=== PATIENT | male | born 1945 | race Two or more races ===

== ENCOUNTER 2017-05-31 19:18 | Inpatient (IN) | payer MEDICARE ==
[~2017-05-31] VITALS: Ht 172.7 cm; Wt 67.9 kg
--- NOTE | ~2017-05-31 | CON ---
PATIENT'S NAME: ELINOR HERNÁNDEZ I [facility] AGE: 71 Y [address] ROOM: [id number] [place], [place] [address] LOCATION: [facility] [place] ADMIT DATE: 05/31/2017 Consultation DISCHARGE DATE: FAMILY PHYSICIAN: PHYSICIAN, NO ATTENDING PHYSICIAN: DEANNA GUSMAN REFERRING PHYSICIAN: DAYO ABURTO MD HISTORY OF PRESENT ILLNESS: Dr. Gusman has requested that I provide an inpatient consultation on this 71- year-old male who was admitted to the emergency room last evening because of the status of his right toe. He is an insulin-dependent diabetic. He is exclusively Czech-speaking and a senior resident care director is not available. History is obtained via the nursing staff and review of his chart. The patient has longstanding insulin-dependent diabetes mellitus. He does not check his blood glucose level on a regular basis (less than or equal to once a day). His hemoglobin A1c was 12 upon admission. The patient noted skin breakdown in his right great toe after working in boots. He has severely compromised sensation to light touch at the foot. He states that the toe is pain free. He has been applying an unspecified vowj-omx-mibyvul topical agents to the toe. He noted that his nail plate was falling off, and, thus, he removed it. His son was reportedly disturbed by the appearance of the toe and encouraged him to come into the hospital. PHYSICAL EXAMINATION: The patient is a slender, alert, pleasant, cooperative male. He states that the toe was pain-free. The nail plate is absent. There is no right inguinal adenopathy. There is no peripheral edema at the right lower extremity. There is no calf swelling or tenderness. There is no erythema at the great toe or ankle. There is partial-thickness skin ulceration involving the nailfold and a 3 to 5 mm rim surrounding the former position of the nail plate. There is no fluctuance. There is no purulence. There is no drainage. There is no erythema. There is no exposed bone or tendon. IMPRESSION: 1. Skin breakdown at the right great toe with avulsion of nail plate. 2. Insulin-dependent diabetes mellitus (poorly-controlled) with significant diabetic neuropathy. PLAN: 1. In the absence of infection, there is no need for urgent surgical intervention. It is conceivable that amputation of the toe may be necessary due to anticipated compromised wound healing capacity. 2. I have consulted the Wound Care nurse team. We will have the patient followed by Dr. Kimball (in the event that debridement and/or amputation is necessary). He may bear weight as tolerated. PATIENT'S NAME: ELINOR HERNÁNDEZ I [facility] AGE: 71 Y [address] ROOM: [place] [address] LOCATION: [facility] [place] ADMIT DATE: 05/31/2017 Consultation DISCHARGE DATE: FAMILY PHYSICIAN: PHYSICIAN, JAMES ATTENDING PHYSICIAN: DEANNA GUSMAN MD ENRIQUE MONTES/elena /[id number] CC: MD Wild Pandey MD d: 06/01/17 0741 t: 06/08/17 0752, CONSULTATION REPORT
--- NOTE | ~2017-05-31 | CON ---
PATIENT'S NAME: ELINOR HERNÁNDEZ I [facility] AGE: 71 Y [address] ROOM: [place] [address] [place]ATION: [facility] [place] ADMIT DATE: 05/31/2017 Consultation DISCHARGE DATE: FAMILY PHYSICIAN: PHYSICIAN, NO ATTENDING PHYSICIAN: DEANNA GUSMAN DATE OF CONSULTATION: 06/01/2017 REFERRING PHYSICIAN: Ramiro Hirsch MD REASON FOR CONSULT: Right great toe wound. HISTORY OF PRESENT ILLNESS: This is a 71-year-old Afghan-speaking male patient who was admitted to [facility] with a right great toe wound secondary to trauma. Last week, he was walking in a field and accidentally kicked a pipe injuring his great toe. He noted the nail pulled off. His has been applying a penicillin powder from [place] to the toe. They note the toe is much improved. No drainage currently noted. At home, he notes no purulent exudate. He denies fevers, chills, or sweats. He is a type 2 diabetic and has an insensate foot. No pain. He denies chest pain or shortness of breath. He has mycotic toenails. He is very pleasant. PAST MEDICAL HISTORY: 1. Type 2 diabetes mellitus. 2. Hypertension. PAST SURGICAL HISTORY: None listed. FAMILY HISTORY: His daughter is a diabetic. SOCIAL HISTORY: The patient lives in [place]. He is unemployed. He is a former tobacco user. He is a social alcohol drinker. ALLERGIES: NO KNOWN DRUG ALLERGIES. CURRENT MEDICATIONS: Please refer to the medication administration record. PATIENT'S NAME: ELINOR HERNÁNDEZ I [facility] AGE: 71 Y [address] ROOM: [place] [address] LOCATION: [facility] [place] ADMIT DATE: 05/31/2017 Consultation DISCHARGE DATE: FAMILY PHYSICIAN: PHYSICIAN, NO ATTENDING PHYSICIAN: DEANNA GUSMAN REVIEW OF SYSTEMS: Pertinent positives addressed in the HPI and all the rest are negative. PHYSICAL EXAMINATION: VITAL SIGNS: Temperature 97.7, pulse 66, respirations 16, and blood pressure 175/79. Pulse oximetry is 98% on room air. Height is 5 feet 8 inches and weight 67.9 kg. GENERAL: The patient is alert and oriented x3. Afghan-speaking only. I used a fire protection inspector during my interaction. HEENT: Head; normocephalic and atraumatic. CARDIOVASCULAR: Deferred. ABDOMEN: Flat. EXTREMITIES: Palpable pedal pulses. No edema. Mycotic toenails. Heel is intact. SKIN: Right great toe has thick, dry necrotic scabbing. Easily debrided revealing a white wound bed where the toenail would normally sit. Surrounding wound bed is moist pink. Small bloody exudate noted. Periwound is slightly scabbed at the base. Distal tip skin is slightly undermined. No erythema to toe. No purulent exudate. No induration. Slight fluctuance at the distal aspect where the undermining is. No odor. Area measures approximately 2.0 cm width x 2.5 cm length x 0.3 cm depth. LABORATORY AND DIAGNOSTICS: Hemoglobin A1c is 12.9%. White blood cell count is 7.4, hemoglobin 13.5, hematocrit 39.0, and platelets 191,000. Sodium 138, potassium 3.7, chloride 104, bicarbonate 24, BUN 16, creatinine 0.7, and glucose 212. CRP 0.79. ESR is 35. Procalcitonin is less than 0.05. Blood cultures showed no growth to date. Right great toe x-ray shows soft-tissue injury involving the great toe with no evidence of fracture, dislocation, bony lytic lesions, or radiopaque foreign body. PROCEDURE NOTE: Today's procedure is selective debridement of necrosis to the patient's right great toe wound. I used a fire protection inspector and the patient gave verbal consent. The area was prepped and draped in the usual fashion and performed in a clean field. I used a sterile #11 blade and sterile hemostat to gently excise necrosis from the wound. Small bloody exudate was noted and hemostasis was achieved by using manual pressure with a gauze pad. The patient reported no feeling. The area debrided was 6 sq cm. ASSESSMENT AND PLAN: Again this is a pleasant 71-year-old Afghan-speaking male patient who was admitted to [facility] with a right great toe wound. 1. Right great toe traumatic wound with complete toe nail avulsion. Easily PATIENT'S NAME: ELINOR HERNÁNDEZ I [facility] AGE: 71 Y [address] ROOM: [place] [address] LOCATION: [facility] ADMIT DATE: 05/31/2017 Consultation DISCHARGE DATE: FAMILY PHYSICIAN: PHYSICIAN, JAMES ATTENDING PHYSICIAN: DEANNA GUSMAN debrided necrosis. Wound bed appears clean. We will cover the site with Xeroform daily. The patient appears to have adequate blood flow. This site will be complicated by his uncontrolled diabetes. At this point, it does appear the site will heal. Dr. Kimball will also see the patient later today. The patient had questions about his toenail growing back. I deferred to Orthopedics. I educated him on the importance of protein intake and elevation. I would be happy to follow up in outpatient WOC if needed. I would like to thank Dr. Hirsch for this consult. DIMA GONG APRN FOR MD EZIO HI/elena /[id number] d: 06/01/17 1409 t: 06/18/17 0909, CONSULTATION REPORT
--- NOTE | ~2017-05-31 | HP ---
PATIENT'S NAME: ELINOR HERNÁNDEZ I [facility] AGE: 71 Y [address] ROOM: [address] [place], [place] [address] LOCATION: [facility] [place] ADMIT DATE: 05/31/2017 History & Physical DISCHARGE DATE: FAMILY PHYSICIAN: JAMES DANIELSON ATTENDING PHYSICIAN: DEANNA GUSMAN DATE OF SERVICE: CHIEF COMPLAINT: Right big toe wound after trauma. HISTORY OF PRESENT ILLNESS: This is a 71-year-old, Macedonian speaking, male who says that for many years the patient has been having this fungal infection of the toenail on the first big toe. 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 The blister ruptured on its own and serosanguineous collection of fluid came out and while the patient was cleaning, he intentionally removed the toenail of the right big first toe. There was no pain at all due to his longstanding diabetes with diabetic peripheral neuropathy. He denies any bleeding or any or pus and the only secretion he was able to see was the serosanguineous fluid coming out from the blister. Subsequently, his has been taking care of him for that wound and has been washing with soap and water as well with powder of penicillin that she brought back from [place] where she will mix with water and the powder of the penicillin bottle and then will wash the first big toe on a daily basis. The patient states that the wound on the right first big toe is actually looking much better than when it was first injured last Sunday and when he took off the toenail. He denies any fever or chills. He also denies any chest pain or shortness of breath or any other symptoms. Since he removed the toenail last Sunday, he has been wearing flip-flops on that foot. The patient came here tonight for evaluation given that the patient's son convinced him to come here to get the proper treatment and to get antibiotics in case the toe is infected. 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 He also denies any prior cardiac problems or pulmonary problems. His only medical problems that he is aware are hypertension and diabetes. He does not take any medication for hypertension, but he does take metformin 850 mg p.o. daily for diabetes. His METS score is more than 4 at the baseline. REVIEW OF SYSTEMS: PATIENT'S NAME: ELINOR HERNÁNDEZ I [facility] AGE: 71 Y [address] ROOM: [place] [address] LOCATION: [facility] [place] ADMIT DATE: 05/31/2017 History & Physical DISCHARGE DATE: FAMILY PHYSICIAN: PHYSICIAN, NO ATTENDING PHYSICIAN: DEANNA GUSMAN As mentioned in the history of present illness. All other systems were reviewed and were negative except those mentioned in the history of present illness. PAST MEDICAL HISTORY: 1. Diabetes type 2. 2. Diabetic peripheral neuropathy in bilateral lower extremities. 3. Hypertension. ALLERGIES: NONE. HOME MEDICATIONS: Metformin 850 mg p.o. daily. SOCIAL HISTORY: The patient was a former cigarette smoker. He quit in 1985. He used to smoke about 2 packs per day for roughly 15 years. He denies any alcohol or any illegal drug use. PAST SURGICAL HISTORY: None. FAMILY HISTORY: Both parents from old age, but he could not remember much about their medical problems. PHYSICAL EXAMINATION: VITAL SIGNS: At the time of my evaluation, temperature was 97.7, heart rate was 55, respirations were 16, blood pressure was 238/102, and saturation 99% on room air. GENERAL APPEARANCE: Alert and oriented x3. Currently, in no acute distress. HEENT: Pupils equally round and reactive to light. Extraocular muscles intact. Anicteric sclerae. Nasal turbinates are normal bilaterally. Moist oral mucosa. NECK: No JVD. CARDIOVASCULAR: Regular rate and rhythm. No murmur. No rubs. No gallops. Normal S1 and normal S2. RESPIRATORY: Clear to auscultation. No rales. No rhonchi. No wheezing. No crackles. ABDOMEN: Soft, nontender, and nondistended. Normal bowel sounds. No hepatosplenomegaly. Bowel sounds are present. EXTREMITIES: No edema in upper or lower extremities. On the right first big toe, there is absence of toenail. There is some necrotic tissue surrounding the first big toe. No obvious purulent drainage and currently, the first big PATIENT'S NAME: ELINOR HERNÁNDEZ I [facility] AGE: 71 Y [address] ROOM: [address] [place], [place] [address] LOCATION: [facility] [place] ADMIT DATE: 05/31/2017 History & Physical DISCHARGE DATE: FAMILY PHYSICIAN: PHYSICIAN, NO ATTENDING PHYSICIAN: DEANNA GUSMAN toe is dry. No active bleeding. No open ulcer. Nontender. No erythema. Dorsalis pedis pulse and posterior tibialis pulse present +2 bilaterally palpable in both feet. The leg is not cold to touch. The color of the skin is pink. NEUROLOGIC: Grossly nonfocal except that he does have decreased sensation in bilateral feet due to peripheral neuropathy. SKIN: Refer to the extremity section for the finding on the first big toe. Otherwise, unremarkable without cyanosis or rash or ulcer in any other parts. LABORATORY DATA: Lactic acid 2.8. White blood cells 7.4, hemoglobin 13.5, hematocrit 39, and platelets 191. Glucose 363, BUN 12, creatinine 0.8, sodium 134, potassium 4.2, chloride 103, CO2 of 23, calcium 8.7, total protein 7.7, albumin 3.4, AST 17, ALT 19, alkaline phosphatase 81, total bilirubin 0.3, anion gap 12.2, and globulin 4.3. ESR is 46. INR 0.94 and PTT 27. CRP 0.94. Procalcitonin less than 0.05. GFR 89. IMAGING STUDY: The right big toe x-ray on admission on May 31, 2017 shows soft tissue injury involving the great toe with no evidence of fracture, dislocation, bony lytic lesion, or radiopaque foreign body. EKG on admission showed finding consistent with left ventricular hypertrophy, sinus rhythm. Heart rate within normal limits. No prior EKG for comparison. EMERGENCY ROOM COURSE: In the emergency room, ER physician already contacted on-call Orthopedic surgeon, Dr. Hirsch and the recommendation will be n.p.o. after midnight and give 2 g of IV Ancef and then dry gauze to the first right big toe in anticipation for possible debridement tomorrow in the morning or in the early afternoon depending on the Orthopedic Surgery service evaluation and scheduling. ASSESSMENT/PLAN: 1. Regarding his right first toe injury and wound. N.p.o. after midnight. Orthopedic Surgery consult in the morning. Dry gauze to the right first big toe. No antibiotics given the patient already got 2 g IV Ancef in the emergency room. He has no pain, but he if he does have pain, IV morphine p.r.n. While he is n.p.o., he should be getting IV fluids for maintenance. The patient will likely require debridement of the necrotic tissue of the right first big toe. Blood cultures of two sets were already obtained in the emergency room. Further plan will depend on clinical course. 2. Regarding his hypertension. The patient does not take any medication at home. EKG showed evidence of left ventricular hypertrophy consistent PATIENT'S NAME: ELINOR HERNÁNDEZ I [facility] AGE: 71 Y [address] ROOM: [address] [address] LOCATION: [facility] [place] ADMIT DATE: 05/31/2017 History & Physical DISCHARGE DATE: FAMILY PHYSICIAN: PHYSICIAN, NO ATTENDING PHYSICIAN: DEANNA GUSMAN with longstanding hypertension. His systolic blood pressure was 230 on arrival. Given that this is chronic and untreated, this is hypertensive urgency given the patient is asymptomatic and without any organ damage. Therefore, the plan will be lower no more than 25% to 30% in the first 24 hours. Therefore, ideally his systolic blood pressure should be around 150 to 160 in the next 24 hours. Therefore, I will be treating him with hypertensive urgency with p.o. captopril 25 mg every 4 hours as well as p.o. clonidine 0.2 mg b.i.d. In addition, add IV hydralazine 20 mg p.o. every hour p.r.n. for systolic blood pressure more than 180. Eventually, we will switch the patient to different regimen given that captopril we usually do not use for prison. Clonidine could cause rebound hypertension once it is discontinued. Further plan will depend on clinical course. 3. Regarding his diabetes type 2. Check A1c. I will treat him with metformin 1 g p.o. b.i.d. In addition, starting on the subcu Levemir 10 units twice a day, one dose right now. In addition, check the fingerstick glucose right now and give him one dose of subcu NovoLog according to the aggressive dose table and then put him on the a.c. and at bedtime subcu NovoLog moderate dose and titrate as needed. 4. Regarding his deep vein thrombosis prophylaxis. None for now given that the patient likely will be taken to the OR tomorrow for debridement. 5. He is a full code. Time spent in care on the day of admission 43 minutes, where 10 minutes was spent on chart review, and the remainder of time was spent on interview and also on physical examination and also on counseling. The counseling includes addressing all the questions and concerns that the patient and the patient's had at the bedside to their satisfaction. The counseling also includes going over the plan of care in detail with the nurse. Further plan will depend on clinical course. MD FRANK BLOCK/elena /[id number] D: [id number] T: [id number] HISTORY & PHYSICAL
--- NOTE | ~2017-05-31 | ER ---
PATIENT'S NAME: EDGAR [facility] AGE: 71 Y [address] ROOM: [place] [id number] LOCATION: [facility] [place] ADMIT DATE: 05/31/2017 ER/Outpatient Report DISCHARGE DATE: FAMILY PHYSICIAN: PHYSICIAN, NO ATTENDING PHYSICIAN: DEANNA GUSMAN Time of Arrival: 1918 hours. Time of Evaluation: 1945 hours. CHIEF COMPLAINT: Toe injury. HISTORY OF PRESENT ILLNESS: This is a 71-year-old, male who was evaluated through the Pharmacy Technician Instructor Service, Mey who states that he injured his right great toe 5 days ago. The patient states that he was walking, kicked the pipe, and injured his toe. He states his nail was pulled off in the injury. The patient states that he has been putting some powdered medication from [place] on the toe. He states he does not believe he has been running any fevers. He has noticed increased swelling to the foot, but states that he has no pain. He states he does have some numbing sensations to his feet. He denies any lightheadedness, dizziness, cough, cold, headaches, chest pain, or shortness of breath. He denies any other problems at this time, and he states his last tetanus shot was 2 years ago. ALLERGIES: NO KNOWN ALLERGIES. MEDICATIONS: Please see medication list in the nurse's notes. PAST MEDICAL HISTORY: Cwb-auyujkm-blcxcouor diabetic. PAST SURGICAL HISTORY: None. SOCIAL HISTORY: Denies smoking, drug, or alcohol use. REVIEW OF SYSTEMS: All systems reviewed and negative with the exception of those discussed in the HPI. PHYSICAL EXAMINATION: PATIENT'S NAME: HERNÁNDEZ [facility] AGE: 71 Y [address] ROOM: [address] [address] LOCATION: [facility] [place] ADMIT DATE: 05/31/2017 ER/Outpatient Report DISCHARGE DATE: FAMILY PHYSICIAN: PHYSICIAN, NO ATTENDING PHYSICIAN: DEANNA GUSMAN VITAL SIGNS: Height 5 feet 6 inches stated, weight 68.0 kg taken, blood pressure is 237/103, pulse 66, respirations 16, temperature 98.1 degrees with the temporal scanner saturations 97% on room air. Mustapha Coma Score is 15. GENERAL: Alert, calm, well-developed 71-year-old, in no acute distress. HEENT: Head: Normocephalic. He does display moist mucous membranes. Eyes: Pupils are equal and reactive to light. LUNGS: Clear to auscultation bilaterally. HEART: Regular rate and rhythm. EXTREMITIES: He has full range of motion of all limbs. He does have decreased sensation to bilateral feet. SKIN: He has a swollen erythematic right great toe. The nail bed is macerated and this does continue to the whole distal aspect of his toe. He has no tenderness with palpation over the distal aspect of the toe, no purulence. He does have some fluctuance to the skin. NEURO: Cranial nerves 2 through 12 grossly intact. Gait was steady with slight limp. LABORATORY DATA: CBC: White count is 7.4, hemoglobin is 13.5, platelets 191, ANC is 4.6, INR is 0.94, sedimentation rate is 46. CMS: Sodium is 134, glucose was 363, BUN 12, creatinine is 0.8, anion gap is 12.2. Liver enzymes were unremarkable. CRP is 0.94, procalcitonin is less than 0.05. Lactate is 2.8. EKG shows sinus bradycardia. He does have some inverted T-waves noted. X-rayof the right foot show no bony involvement to the right hallux. IMPRESSION: 1. Cellulitis to right great toe. 2. Hypertension. 3. Diabetes type 2. ASSESSMENT AND PLAN: The patient did not require any pain medication while he was here. We did start an IV and did obtain 2 blood cultures. We did give him a total of 2 g of Ancef IV here in the emergency room. The patient does not have a primary care physician here in [place], therefore, I called Dr. Gusman and also consulted Dr. Hirsch who is on-call for orthopedic trauma call. We will be admitting the patient for further care. The patient and patient's family understand and agree with care. JHONY SMILEY PA-C FOR MD BALTA GOMEZ/elena PATIENT'S NAME: ELINOR HERNÁNDEZ I [facility] AGE: 71 Y [address] ROOM: [address] [address] LOCATION: [facility] [place] ADMIT DATE: 05/31/2017 ER/Outpatient Report DISCHARGE DATE: FAMILY PHYSICIAN: JAMES DANIELSON ATTENDING PHYSICIAN: DEANNA GUSMAN /[id number] d: 05/31/17 2354 t: 06/05/17 1805, OUTPATIENT REPORT
--- NOTE | ~2017-05-31 | DS ---
PATIENT'S NAME: ELINOR HERNÁNDEZ I [facility] AGE: 71 Y [address] ROOM: [id number] [place], [place] [address] [place] [facility] [place] DATE: 05/31/2017 Discharge Summary DISCHARGE DATE: 06/04/2017 FAMILY PHYSICIAN: PHYSICIAN, JAMES ATTENDING PHYSICIAN: Mannie Barrientos PRINCIPAL DIAGNOSES: 1. Right great toe wound. 2. Diabetes mellitus type 2, uncontrolled. 3. Hypertension, essential, uncontrolled. 4. Diabetic neuropathy. HOSPITAL COURSE: Please reference any of the admitting data to the history and physical as dictated by Dr. Mannie Barrientos. This is a 71-year-old male who presented to the emergency room with a right big toe wound after a trauma event. He was admitted to the hospital for further evaluation and management and Orthopedic consultation. An x-ray of the foot did not show any evidence of fracture, dislocation, or lesions. There was definite soft tissue injury. Lab values did not show any evidence of sepsis. Orthopedic consultation, Dr. Hirsch, did not feel there was any need for urgent surgical intervention. Consultation with the Wound Care team and nurse practitioner ensued and the patient's nail avulsion was debrided at the bedside to show good clear clean tissue. It was dressed appropriately. Of note, the patient did get 1 dose of antibiotics in the emergency room, but no further while inpatient as we monitored over the patient's stay which did show some improvement and no further signs of infection. He will require followup appropriately as an outpatient. The patient's diabetes however was found to be significantly uncontrolled with a hemoglobin A1c of 12.9. We maximized his metformin that he was taking at home and added insulin regimen to adequately bring his blood sugars down. A diabetes education consultation ensued. The patient was adamant about not taking any insulin upon discharge; so, we tried to accommodate by titrating it accordingly. We were able to start him on maximum dose of metformin as well as compare I did see an improvement in his blood sugars overall into the 100s. He did not have any renal side effects during his short stay because of it. He is given extensive diet and exercise education as well importance of followup of his diabetes. We did not obtain a lipid panel as an inpatient, but this will be sufficiently tested as an outpatient. Also, found, the patient was very hypertensive with an initial blood pressure of 238/102, we brought this back down into a more normal range with captopril and clonidine. We then transition him to an MELISSA inhibitor and maximized that dosage as well as amlodipine and maximized it. We were required to add chlorthalidone up to 50 mg. He still had pretty significant hypertension with PATIENT'S NAME: ELINOR HERNÁNDEZ I [facility] AGE: 71 Y [address] ROOM: [place] [address] LOCATION: [facility] [place] ADMIT DATE: 05/31/2017 Discharge Summary DISCHARGE DATE: 06/04/2017 FAMILY PHYSICIAN: PHYSICIAN, NO ATTENDING PHYSICIAN: Mannie Barrientos systolic blood pressures in the 170s and 180s, he was asymptomatic, it was felt that due to the recent addition of these medications, we should see improvement over the next few days with appropriate outpatient followup and blood pressure monitoring, he would be safe to return to home. CONDITION AT DISCHARGE: Good. CONSULTING PROVIDERS: 1. Dr. Ramiro Hirsch and Wild Kimball, Orthopedics. 2. Barbra Brunson APRN, Wound Care. PROCEDURES: Surgical debridement at the bedside by Barbra Brunson APRN. PERTINENT LABORATORY FINDINGS: The patient did not have a white count when he presented. White blood cells were 7.4, hemoglobin of 13.5, hematocrit of 39.0, and platelet count 191. Chemistry panel on 06/04/2017 last showed glucose of 122, BUN of 11, creatinine of 0.7, sodium 140, potassium 4.0, chloride 107, CO2 24, calcium 8.8. Liver functions within normal limits. Initial CRP was 0.94. Sed rate was 46. Procalcitonin was negative. Hemoglobin A1c was 12.9. Urinalysis was negative for leukocytes, negative for nitrites, mild protein 15, and 1000 glucose, but negative for ketones. RADIOLOGIC IMAGING: Three-view of the right foot as described above with an impression of soft tissue injury with no other definite findings. DISCHARGE MEDICATIONS: 1. Amlodipine 10 mg p.o. everyday. 2. Chlorthalidone 50 mg p.o. everyday. 3. Glipizide 10 mg p.o. twice daily before meals. 4. Glucophage 1000 mg p.o. twice daily. 5. Lisinopril 40 mg p.o. everyday. DISCHARGE INSTRUCTIONS: The patient will be discharged to home with his spouse. Diet is to be diabetic and low-sodium with activity as tolerated. He will require follow up with his primary care doctor, Dr. Marcus Olmos, within the next 5 to 7 days. At that same timeframe, he is to obtain a fasting chemistry panel and lipid panel for further evaluation. He is instructed that the patient takes his blood sugars twice daily and blood pressure each a.m. upon rising at the same time and record results and take to the followup as well. He should also [facility] June 13 at 2 p.m. PATIENT'S NAME: ELINOR HERNÁNDEZ I [facility] AGE: 71 Y [address] ROOM: [place] [address] LOC[place]: [facility] [place] ADMIT DATE: 05/31/2017 Discharge Summary DISCHARGE DATE: 06/04/2017 FAMILY PHYSICIAN: PHYSICIAN, JAMES ATTENDING PHYSICIAN: Mannie Barrientos As far as wound care goes, he should continue with the home dressings changes with Xeroform to the wound bed draped over and wrapped with gauze changing Sunday, Sunday, and Sunday with appropriate follow up on at 10:30. At the same timeframe, Dr. Kimball will hopefully evaluate the wound. As previous stated, there was no indication for antibiotic treatment as the tissue appeared to be granulating well and no signs of infection at the time of discharge. IMPORTANT NOTE: Hebrew interpretation was utilized throughout the course of the hospitalization including at time of discharge. Above line of management was discussed with the patient and spouse who stated complete understanding and all questions were answered with stated satisfaction. Indirect coordination of the care of the patient and discharge planning was greater than 30 minutes. ANGEL HWANG APRN, APRN FOR MD [facility]/elena /[id number] CC: MD Barbra Mccoy APRN d: 06/05/17 0031 t: 06/11/17 1129, DISCHARGE SUMMARY
[2017-05-31 20:25] LABS: BASOPHIL # 0.1 K/uL (0.0-0.2); BASOPHIL % 0.7 %; EOSINOPHIL # 0.3 K/uL (0.0-0.5); EOSINOPHIL % 3.4 %; HEMOGLOBIN 13.5 g/dL (11.0-16.0); IMMATURE GRANULOCYTE % 0.1 %; MCH 28.3 pg (27.0-34.0); MCHC 34.6 gm/dL (32.0-36.5); MCV 81.8 fl (83.0-98.0); MONOCYTE # 0.5 K/uL (0.0-1.0); MONOCYTE % 6.4 %; MPV 11.5 fl (9.4-12.4); NEUTROPHIL # (ANC) 4.6 K/uL (1.4-9.0); NEUTROPHIL % 62.4 %; NRBC % 0 /100WBC (0-0.00); PLATELET COUNT 191 K/uL (150-450); RBC 4.77 M/uL (3.50-5.50); RDW-CV 12.5 % (11.9-14.6); WBC 7.4 K/uL (4.0-11.0)
[2017-05-31 20:34] LABS: INR - (THERAPEUTIC) 0.94 (0.92-1.07); PROTIME 9.9 SECONDS (9.8-11.4); PTT 27 SECONDS (25-32)
[2017-05-31 20:44] LABS: ALBUMIN 3.4 gm/dL (3.5-5.0); ANION GAP 12.2 (10.0-19.0); CALCIUM 8.7 mg/dL (8.5-10.5); CREATININE 0.8 mg/dL (0.6-1.3); POTASSIUM 4.2 mMol/L (3.7-5.1); TOTAL BILIRUBIN 0.3 mg/dL (0.0-1.5); TOTAL PROTEIN 7.7 g/dL (6.0-8.4)
[2017-06-01] MEDS ORDERED: GLUCOPHAGE1000 MG PO (00:25)
[2017-06-01 01:19] LABS: CPK 65 IU/L (35-332)
--- NOTE | 2017-06-01 02:13 | NUR ---
PT ADMIT FROM ER, INFECTED R GREAT TOE FOR DR GUSMAN. BP ON ARRIVAL TO FLOOR WAS 238/102, MD NOTIFIED. TREATED WITH HYDRALAZINE, CLONIDINE, CAPTOPRIL. CHECK Q 1HR X3, IF SBP NOT < 160 AT THAT TIME NOTIFY MD. PT IS [place] SPEAKING ONLY. ONLY REPORTS HX OF DIABETES. REPORTS GOING TO [place] TO GET MEDICATIONS AND ONLY TAKES METFORMIN. WAS WALKING IN [place], HAD BLISTER ON TOE THAT POPPED. HAS CHRONIC FUNGAL INFECTION OF TOE NAILS, AND TOE NAIL STARTED TO FALL OFF, SO HE PULLED IT OFF ALL THE WAY. REPORTS HIS SON BROUGHT HIM IN TO HAVE IT FIXED BECAUSE IT WAS UGLY. ORTHO CONSULTED, NPO AFTER MIDNIGHT FOR DEBRIDEMENT IN AM.
--- NOTE | 2017-06-01 04:27 | NUR ---
Significant Event: PT AO. [place]URKM[place] SPEAKING ONLY. NPO FOR POSSIBLE DEBRIDEMENT OF R GREAT TOE. CURRENTLY WRAPPED IN DRY GUAZE. AMBULATES WITH SBA. BP WERE HTN ON ARRIVAL, HAVE SINCE COME DOWN. CONTINUE TAKING BP/HR Q1HR UNTIL 0800. IF REMAINS SBP> 160 AT THAT TIME, ORDERS TO CALL MD. ACCUCHECKS Q4HR, MILD SLIDING SCALE WHILE NPO. WILL BE ACHS, MODERATE SLIDING SCALE WHEN EATING AGAIN. STILL NEED UA. AT BEDSIDE. Follow up: NO PERMITS FOR DEBRIDEMENT YET, MONITOR HTN, Q4HR ACCUCHECKS
[2017-06-01 05:41] LABS: ANION GAP 13.7 (10.0-19.0); BLOOD UREA NITROGEN 16 mg/dL (6-24); CALCIUM 8.7 mg/dL (8.5-10.5); CHLORIDE 104 mMol/L (96-110); CO2 24 mMol/L (22-32); CREATININE 0.7 mg/dL (0.6-1.3); POTASSIUM 3.7 mMol/L (3.7-5.1); SODIUM 138 mMol/L (135-145)
[2017-06-01 09:28] LABS: BILIRUBIN URINE NEGATIVE (NEGATIVE); BLOOD URINE NEGATIVE /UL (NEGATIVE); COLOR URINE YELLOW (YELLOW); GLUCOSE URINE 1000 mg/dL (NEGATIVE); KETONE URINE NEGATIVE (NEGATIVE); LEUKOCYTES URINE NEGATIVE /UL (NEGATIVE); NITRITE URINE NEGATIVE (NEGATIVE); PROTEIN URINE 15 mg/dL (NEGATIVE); TURBIDITY URINE CLEAR (CLEAR); UROBILINOGEN URINE NORMAL (NORMAL)
[2017-06-01 09:41] LABS: BACTERIA URINE NEGATIVE (NEGATIVE); EPITHELIAL URINE NEGATIVE #/HPF (NEGATIVE); RBC URINE 0-2 #/HPF (NEGATIVE); WBC URINE 0-2 #/HPF (NEGATIVE)
--- NOTE | 2017-06-01 10:30 | NUR ---
MEET WITH PATIENT AND HIS SPOUSE AT THE BEDSIDE. WITH HELP OF JEANA SANTIZO. PATIENT LIVES IN OWN HOME WITH SPOUSE. HE IS PLANNING ON GOING HOME ONCE HE IS READY FOR DISCHARGE. HE TELLS ME THAT HE DOES NOT HAVE INSURANCE. I MADE REFERRAL TO [facility] WITH [facility] SHE HAS LOOKED HIM UP AND SHE NOTES THAT HE HAS MEDICARE. [facility] WILL PLAN ON MEETING WITH ELINOR AND TALK TO HIM ABOUT THIS. WILL CONT TO FOLLOW NEEDED.
--- NOTE | 2017-06-01 11:00 | NUR ---
Diabetes Consult: Patient is Burmese speaking with a long standing history of poorly controlled diabetes. Communication was accomplished with the use of Britni Gan interpretor. The patient indicates that he has been taking metformin for his diabetes. He reports he has not seen his primary care provider, Dr. Timmy Olmos in quite some time and has been receiving medications from [place]. The patient's current A1C is 12.9%. His blood sugars have been well controlled after starting Levemir 10 units twice daily and Novolog. The patient remains insistent that he is not going to take insulin upon discharge, despite persuassive efforts by Dr. Douglas Pederson and myself. He was informed of the his immediate increased risk for poor wound healing and potential amputation as well as the increased risk for WI, stroke, and renal failure. The patient reports that he will manage his diabetes with diet and his oral pills. He reports having met with a dietitian in the past, but had no real understanding of what foods contain carbohydrates. In addition, the patient reports having checked blood sugars in the past, but no longer has a working meter. The patient was provided with education guided by the survival skills checklist. He was given a glucometer and 40 test strips. He was encouraged to test blood sugars three times daily before meals. He is to call [facility] and request additional test [facility] from the [facility] when he runs out. He is agreeable to receiving insulin while in the hospital and meeting with a CDE 1-2 weeks after discharge. The patient was given diabetes resource guide written in Burmese to take home.
--- NOTE | 2017-06-01 17:50 | NUR ---
AAOx3. Cooperative with cares. NPO for Dr Kimball. IVF to RFA. UA obtained. L)great toe debrided by WOC nurse. Hypertensive, bradycardic. On RA, afebrile. Denies N/V/D and pain.
--- NOTE | 2017-06-02 03:49 | NUR ---
Significant Event: Alert/oriented x3. Cooperative with cares. Bolivian-speaking only, some of the family speaks Kazakh. 2 family members spent the night. Accuchecks AC, HS, was 287 at HS - scheduled Levemir 10 U and 6 U Novolog per moderate sliding scale. Dr Slade will f/u on Sunday per Dr Hirsch. No complaints of pain. Small shadow drainage on dressing- serosanguinous, did not change it. Hypertensive, bradycardic. Room air. Language line in room, if needed. CSM WNL. 2 voids per bathroom, 1 BM, not observed. Follow up:
[2017-06-02 05:42] LABS: BLOOD UREA NITROGEN 15 mg/dL (6-24); CALCIUM 8.6 mg/dL (8.5-10.5); CHLORIDE 108 mMol/L (96-110); CO2 26 mMol/L (22-32); CREATININE 0.7 mg/dL (0.6-1.3); SODIUM 142 mMol/L (135-145)
--- NOTE | 2017-06-02 17:23 | NUR ---
AAOx3. Cooperative with cares. Family assists. Bengali speaking only; LL in room. Tolerating ADA diet well. BS ac/hs w/moderate SSI. Hypertensive. R)great toe dressing changed daily and PRN. IVF @75. Up ad aranza in room with family. Afebrile, RA, denies, N/V/D and pain.
--- NOTE | 2017-06-03 06:23 | NUR ---
Significant Event: Pt alert and oriented. Family assists with interpretation. Cooperative with cares. Right great toe dressed xerform and gauze. Denies pain. AC/HS accuchecks with 2 units given at HS. Cont to monitor. Follow up:
--- NOTE | 2017-06-03 17:48 | NUR ---
AAOx3. Up ad aranza w/family in room. Showered this afternoon. Dressing to be changed after that. Hypertensive. Started additional BP meds. Oral BS meds AC/HS w/moderate SSI. On RA, afebrile. Some diarrhea. Gave Zofran for nausea this a.m. w/relief. Gave PRN BP med for >180 this a.m. Probable d/c home tomorrow after Dr Jigar kimball.
[2017-06-04 04:55] LABS: ALBUMIN 2.9 gm/dL (3.5-5.0); ALK PHOS 74 IU/L (33-138); ALT 18 IU/L (12-78); BLOOD UREA NITROGEN 11 mg/dL (6-24); CALCIUM 8.8 mg/dL (8.5-10.5); CHLORIDE 107 mMol/L (96-110); CO2 24 mMol/L (22-32); CREATININE 0.7 mg/dL (0.6-1.3); SODIUM 140 mMol/L (135-145); TOTAL PROTEIN 6.8 g/dL (6.0-8.4)
[2017-06-04 05:00] LABS: AST 21 IU/L (10-40); TOTAL BILIRUBIN 0.5 mg/dL (0.0-1.5)
--- NOTE | 2017-06-04 05:12 | NUR ---
Significant Event: Pt maltese speaking only, language line in room. Has some family memebers that can interpret when they are in room. IV saline locked. Up ad aranza in room. Right great toe is dressed with xerform and kerlix. No c/o pain. Poss discharge today. Follow up:
--- NOTE | 2017-06-04 11:25 | NUR ---
Diabetes consult: Visited with the patient this a.m. regarding his diabetes and new medication glucotrol. The language line was used to communicate with the patient. The patient was able to recall how many times to test his blood sugars upon returning home and blood glucose targets. He was informed that he has a follow up appointment with the C[facility] in the [facility] in two weeks. He denies any questions or concerns. The patient has not yet determined a primary care provider to follow up upon discharge. He verablizes that his is planning to follow up with Dr. Hirsch.
--- NOTE | 2017-06-04 12:12 | NUR ---
SPOKE TO PATIENT WITH HELP OF LANGUAGE LINE INTERPETER [phone]. HE IS PLANNING ON BEING DISHCARGE HOME TODAY. HE HAD LOST HIS MEDICARE CARD AND WANTS TO KNOW HOW HE CAN GET IT RENEWED. I GAVE HIM THE CONTACT NUMBER FOR MEDICARE [phone] AND ALSO HIS SPOUSE WROTE IT DOWN. THEY WILL CONTACT MEDICARE TO SEE WHAT THEY NEED TO DO.
[2017-06-04] MEDS ORDERED: NORVASC10 MG PO (17:39)
[2017-06-04] MEDS ORDERED: GLUCOTROL10 MG PO (17:43)
[2017-06-04] MEDS ORDERED: ZESTRIL40 MG PO (17:44)
[2017-06-04] MEDS ORDERED: HYGROTON50 MG PO (17:45)
--- NOTE | 2017-06-04 18:43 | NUR ---
DISCHARGE: Pt. was explained discharge instructions and follow up appointments. Educated on new medications: norvasc, lisinopril, glucotrol, glucophage, and chlorthalidone. Educated on diabetes self care, diabetic neuropathy, dressing changes, wound care, taking own blood pressure. Verbalized understanding of teaching, no questions or concerns. Will follow up as ordered. Removed PIV. Patient left with all belongings and prescriptions. Taken to front door by aide and driven home by family. [employer] was used for interpretation of instructions.
== END 2017-06-04 18:35 | disposition disaster alternative care site (69) | DRG 605 ==
LOC: GMED 19:18 → GMSU 22:17
PROVIDERS: Internal Medicine; Nurse Practitioner Family; Physician Assistant Medical; ADMIT Internal Medicine
PROC: 0HBRXZZ Excision of Toe Nail, External Approach (ICD-10-PCS; principal; 2017-05-31)
DX: S91.101A Unspecified open wound of right great toe without damage to nail, initial encounter (principal); E11.21 Type 2 diabetes mellitus with diabetic nephropathy; B35.1 Tinea unguium; I10 Essential (primary) hypertension; I51.7 Cardiomegaly; L03.031 Cellulitis of right toe; I16.0 Hypertensive urgency; Z87.891 Personal history of nicotine dependence; Z79.84 Long term (current) use of oral hypoglycemic drugs
CPT/HCPCS: A9270; J0360; J0690; J2405; J7030

== ENCOUNTER → 2017-06-29 | Outpatient (CLI) | payer MEDICARE ==
[~2017-06-29] MED LIST: GLUCOPHAGE1000 MG PO; GLUCOTROL10 MG PO; HYGROTON50 MG PO; NORVASC10 MG PO; ZESTRIL40 MG PO
== END | disposition disaster alternative care site (69) ==
LOC: GDIC 06-13 12:50
DX: E11.65 Type 2 diabetes mellitus with hyperglycemia (principal)
CPT/HCPCS: G0108